=== PATIENT | female | born 1975 | race Caucasian/White ===

== ENCOUNTER → 2019-05-04 13:00 | Outpatient (BNVA) | payer SELFPAY | PROVIDERS: PCP Nurse Practitioner Family; Visit Provider Nurse Practitioner Family | DX: T30.0 Burn of unspecified body region, unspecified degree (principal); X58.XXXA Exposure to other specified factors, initial encounter | CPT/HCPCS: 80053; 85025; 87070; 87077; 87186; 87205 ==

== ENCOUNTER 2019-05-23 13:35 | Outpatient (RCR) | payer SELFPAY | END 2019-06-17 23:59 | disposition home or self-care (01) | LOC: WOUND 13:35 | PROVIDERS: PCP Nurse Practitioner Family; Visit Provider Thoracic Surgery (Cardiothoracic Vascular Surgery) | DX: T24.301D Burn of third degree of unspecified site of right lower limb, except ankle and foot, subsequent encounter (principal); T79.9XXD Unspecified early complication of trauma, subsequent encounter; X08.8XXD Exposure to other specified smoke, fire and flames, subsequent encounter | CPT/HCPCS: 11042; 99203; G0463 ==

== ENCOUNTER 2019-09-24 22:39 | Emergency (ER) | payer SELFPAY ==
[2019-09-24 22:45] VITALS: RESP 18; O2SAT 100; BMI 24.7
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
[2019-09-25] MEDS: LORazepam 2 mg/mL INJ 1 mL IM (00:39)
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
[2019-09-25] MEDS: lidocaine 1% INJ 20 mL 2.1 ML IM (00:49)
[2019-09-25] MEDS: azithromycin 250 mg Tablet 1000 MG PO (00:50)
[2019-09-25] MEDS: cefTRIAXone 250 mg SDV IM (00:50)
[2019-09-25 01:03] LABS: Amphetamines Screen Urine Negative (Negative); Barbiturates Screen Urine Negative (Negative); Benzodiazepines Screen Urine Negative (Negative); Cocaine Screen Urine Negative (Negative); Opiate Screen Urine Negative (Negative); PCP Screen Urine Negative (Negative); THC Screen Urine Negative (Negative)
[2019-09-25 01:06] LABS: Alcohol Level 164 mg/dL (0-10)
[2019-09-25 01:19] LABS: HIV 1 & 2 Antibody Non-Reactive (Non-Reactiv); HIV 1 & 2 Antigen Non-Reactive (Non-Reactiv)
[2019-09-25 01:30] LABS: Hepatitis A Antibody IgM Non-Reactive (Nonreactive); Hepatitis B Core AB, Total Non-Reactive (Nonreactive); Hepatitis B Surface AB 3.5 (0-8.5); Hepatitis B Surface Antigen Non-Reactive (Nonreactive); Hepatitis C Virus Antibody Non-Reactive (Nonreactive)
== END 2019-09-25 01:17 | disposition home or self-care (01) ==
PROVIDERS: Emergency Provider Nurse Practitioner Family; PCP Nurse Practitioner Family
DX: T74.21XA Adult sexual abuse, confirmed, initial encounter (principal); F18.2 Inhalant dependence; F17.210 Nicotine dependence, cigarettes, uncomplicated
CPT/HCPCS: 12345; 80306; 80307; 86705; 86706; 86709; 86803; 87340; 87806; 96372; 99281; 99284; J0696; J2001; J2060; Q0144

== ENCOUNTER 2019-10-05 23:32 | Emergency (ER) | payer OTHER, SELFPAY ==
[2019-10-05 23:35] VITALS: BP 83/68; PULSE 82; RESP 16; TEMP 36.9; O2SAT 98; BMI 24.7
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
[2019-10-06 00:20] VITALS: BP 129/83; PULSE 80; RESP 18; O2SAT 99
[2019-10-06 01:51] LABS: Add Urine Microscopic? NO
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
[2019-10-06 02:20] LABS: Bilirubin Urine Neg (NEGATIVE); Blood Urine Neg (Negative); Glucose Urine UA Norm (Normal); Ketones Urine Negative (Negative); Leukocyte Esterase Urine Negative (Negative); Nitrate Urine Negative (Negative); Protein Urine Neg (Negative); Specific Gravity, Urine 1.005 (1.005-1.030); Urine Appearance Clear (CLEAR); Urine Color Straw (Yellow); Urobilinogen Urine Norm (Negative); pH Urine 7 (5-7)
--- NOTE | 2019-10-06 02:52 | PC.NURSE ---
NORA exam done by SANE nurse. Pt. tolerated procedure well. Report made with Kelly DALEY.
[2019-10-06 03:06] VITALS: BP 142/85; PULSE 78; RESP 18; O2SAT 100
== END 2019-10-06 03:10 ==
PROVIDERS: Emergency Provider Nurse Practitioner Family; PCP Nurse Practitioner Family
DX: T74.21XA Adult sexual abuse, confirmed, initial encounter (principal); F17.210 Nicotine dependence, cigarettes, uncomplicated
CPT/HCPCS: 12345; 81003; 99281

== ENCOUNTER 2019-10-07 03:06 | Emergency (ER) | payer SELFPAY ==
[2019-10-07 03:18] VITALS: BP 120/81; PULSE 82; RESP 18; TEMP 36.5; O2SAT 100; BMI 26.5
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
[2019-10-07 03:26] VITALS: BP 131/77; PULSE 66; RESP 16; O2SAT 97
--- NOTE | 2019-10-07 03:29 | PC.NURSE ---
Pt refuses SANE exam and Provider exam.
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
[2019-10-07 04:26] VITALS: BP 127/74; PULSE 66; RESP 16; O2SAT 98
== END 2019-10-07 05:10 | disposition home or self-care (01) ==
PROVIDERS: Emergency Provider Emergency Medicine; PCP Nurse Practitioner Family
DX: T74.21XA Adult sexual abuse, confirmed, initial encounter (principal); F17.210 Nicotine dependence, cigarettes, uncomplicated
CPT/HCPCS: 12345; 71045; 99282; 99283

== ENCOUNTER 2019-10-15 01:24 | Emergency (ER) | payer SELFPAY ==
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
--- NOTE | 2019-10-15 03:34 | PC.NURSE ---
i agree with this assessment
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
== END 2019-10-15 03:35 | disposition home or self-care (01) ==
PROVIDERS: Emergency Provider Emergency Medicine; PCP Nurse Practitioner Family
DX: T20.20XA Burn of second degree of head, face, and neck, unspecified site, initial encounter (principal); X08.8XXA Exposure to other specified smoke, fire and flames, initial encounter; S90.31XA Contusion of right foot, initial encounter; F18.20 Inhalant dependence, uncomplicated; F17.210 Nicotine dependence, cigarettes, uncomplicated
CPT/HCPCS: 12345; 73630; 99281; 99283

== ENCOUNTER 2019-12-04 20:09 | Emergency (ER) | payer SELFPAY ==
[2019-12-04 20:20] VITALS: BP 157/118; PULSE 93; RESP 16; TEMP 36.5; O2SAT 98; BMI 25.8
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
[2019-12-04 20:49] VITALS: RESP 16
[2019-12-04] MEDS: morphine 4 mg/mL SDV 1 mL IM (20:49)
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
[2019-12-04] MEDS: ketorolac 60 mg/2 mL INJ IM (22:42)
[2019-12-04 22:49] VITALS: BP 163/109; PULSE 98; RESP 16; O2SAT 100
== END 2019-12-04 22:50 | disposition home or self-care (01) ==
PROVIDERS: Emergency Provider Family Medicine; PCP Nurse Practitioner Family
DX: S02.601A Fracture of unspecified part of body of right mandible, initial encounter for closed fracture (principal); S02.652A Fracture of angle of left mandible, initial encounter for closed fracture; F17.210 Nicotine dependence, cigarettes, uncomplicated; Y04.2XXA Assault by strike against or bumped into by another person, initial encounter
CPT/HCPCS: 12345; 70450; 70486; 72125; 96372; 99281; 99283; J1885; J2270

== ENCOUNTER 2019-12-19 00:15 | Emergency (ER) | payer SELFPAY ==
[2019-12-19 00:15] VITALS: BMI 24.7
--- NOTE | 2019-12-19 00:22 | W.ED.PSYCH ---
HPI - Psych General: Chief Complaint: Psychiatric Symptoms Stated Complaint: 96 hr Hold Time Seen by Provider: 12/19/19 00:16 Source: patient and police Mode of arrival: other (police) Limitations: no limitations History of Present Illness: HPI Narrative: 44-year-old female who presents with police. Patient's family fill out 96-hour hold for possible suicidality. Patient adamantly refuses being suicidal or homicidal. Patient denies any recent attempts and states she would never kill herself. She denies any recent drug use. Associated symptoms: Deny depression Review of Systems Const: Denies: fever(s), chills, body aches or change in appetite Eyes: Denies: blurry vision or eye discomfort ENMT: Denies: throat pain or dental pain Card: Denies: chest pain Resp: Denies: dyspnea GI: Denies: abdominal pain, nausea, vomiting or diarrhea : Denies: dysuria Musc: Denies: neck pain or back pain Skin/Breast: Denies: rash Neuro: Denies: headache(s) Psych: Denies: depression Kyle/Lymph: Denies: easy bruising All/Imm: Denies: urticaria PFSH ED PFSH: Medical History History of amputation of finger (~2009) Family History Family/Other Unknown family medical history adopted Social History (Updated 12/19/19 @ 00:46 by Francesco Murray RN) Smoking and tobacco status: current every day smoker cigarettes Second hand smoke exposure: Yes Alcohol intake: current Substance/Drug Use: current Substance/Drug use frequency: daily Substance/Drug use type: Inhalants 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, relasped 2 days Desire information about substance/drug rehabilitation?: Yes Lives independently: Yes Household members: friend(s) Housing: House Marital status: Current occupational status: disabled Current occupational exposures/hazards: Yes History of recent travel: No Current gender identity: Female Physical Exam Const: COMMON NORMALS: no acute distress, patient oriented x3 and healthy appearing HENMT: COMMON NORMALS: normocephalic and atraumatic HEAD & SCALP: normocephalic and atraumatic Eye: COMMON NORMALS: Equal, round and reactive pupils present and EOMs intact bilaterally PUPIL: Yes Equal, round and reactive pupils present Neck/C-Spine: COMMON NORMALS: full ROM and supple Chest: COMMONS NORMALS: normal inspection of the chest and normal palpation of entire chest wall Resp: COMMON NORMALS: normal respiratory effort, No retractions, No use of accessory muscles and clear to auscultation bilaterally AUSCULTATION: clear to auscultation bilaterally Cardio: COMMON NORMALS: regular rate, regular rhythm and No murmurs present (Cardio) RATE: regular rate RHYTHM: regular rhythm GI: COMMON NORMALS: Normal to inspection, nondistended, normoactive bowel sounds present, Soft to palpation, non-tender and no masses PALPATION: Yes Soft to palpation Extremity: COMMON NORMALS: normal to inspection and full ROM Neuro: COMMON NORMALS: patient oriented x3, moves all extremities and no focal motor deficits Psych: COMMON NORMALS: mental status grossly normal, Normal thought process present and cooperative THOUGHT PROCESS: Normal thought process present Skin: COMMON NORMALS: no rashes or lesions noted and no wounds GENERAL SKIN EXAM: no rashes or lesions noted MDM - Psych MDM Narrative: Medical decision making narrative: Patient presents here with depression. Patient was on a 96-hour hold and had affidavits filled out by family. Patient denied ever saying any suicidal homicidal statements to her family. I had Dr. Floyd assessed patient and went over the affidavits with him as well. He does not believe she is a threat to herself and does not believe she was suicidal. I do not believe that she is suicidal either and I feel she is stable for discharge. I had a long discussion with her informed her she does have any worsening depressions or suicidal thoughts she is to return. She did agree and I feel she is safe for discharge at this time and will rescind her 96-hour hold. Discharge Plan Discharge Patient Disposition: Home Clinical Impression: Depression Qualifiers: Depression Type: unspecified Qualified Code(s): F32.9 - Major depressive disorder, single episode, unspecified Condition: Stable Prescriptions: No Action ibuprofen 200 mg Tablet 200 - 400 mg PO Q4H PRN (Reason: Pain) RF: 0 [place] 5-325 mg tablet 1 tab PO Q8H PRN (Reason: mandibular fracture) Qty: 15 RF: 0 Discharge Orders: Discharge Order (Routine); Ordered 12/19/19 Ordered By: Geovani Quiroga Referrals: Tyesha Chavira FNP [Primary Care Provider] - 1-3 days Discharge Diet: Advance as tolerated Discharge Activity: Resume usual activity Patient Instructions: Depression (ED) Coding Level of Care Code ED Contractor Buyer for Chg Fwd Exam Comprehensive
--- NOTE | 2019-12-19 00:38 | PC.NURSE ---
Patient uncooperative with blood work. Two RNs attempting to draw labs. Patient refusing to provide a urine sample at this time.
--- NOTE | 2019-12-19 01:39 | PC.NURSE ---
Arranged transport home via the patient's parents.
[2019-12-19 01:40] VITALS: PULSE 88; RESP 14; O2SAT 99
--- NOTE | 2019-12-19 09:35 | PC.SOCIAL ---
Mother had called Admin this am regarding concerns of patient being discharged from ED and mentioned she did not get DC paperwork. Emailed DC paperwork to Joe office in [place] and copied Zari and Angelique Crane as well. Spoke with Angelique Crane to confirm that patient does have an appt at the [facility] [facility] today at 2pm. left message for Jillian at [facility] and requested a call back. Will try to obtain an intake appt so patient can establish with Behavioral healthcare for depression concerns. Tried to follow up with Mom and was asked to call back in 5 min. Tried to reach patient first but no answer. Mother is currently not listed as a contact so limited information will be provided and will just address that her ED DC paperwork can be retrieved at her appt today with Joe since they will have this available for her. Will call Mother back shortly.
--- NOTE | 2019-12-19 12:43 | PC.SOCIAL ---
Discussed with Jillian at [facility]. She needs to have the new patient paperwork returned prior to being able to schedule an appointment. Since patient is to be seen at 2 by [facility] Walsh will call [facility] office and make sure they have the paperwork. If she can complete while at [facility] then they can send this back and an appt can be scheduled. Appreciated Jillian's help with coordinating the care.
== END 2019-12-19 01:41 | disposition home or self-care (01) ==
PROVIDERS: Emergency Provider Emergency Medicine; PCP Nurse Practitioner Family
DX: F32.9 Major depressive disorder, single episode, unspecified (principal); F17.210 Nicotine dependence, cigarettes, uncomplicated
CPT/HCPCS: 12345; 99284

== ENCOUNTER 2020-02-25 22:16 | Inpatient (IN) | payer SELFPAY ==
[2020-02-25] VITALS (15 sets, daily range): BP systolic 105–135; BP diastolic 65–94; PULSE 68–100; RESP 12–19; TEMP 37.2; O2SAT 97–100
[2020-02-25] MEDS: OLANZapine 10 mg VIAL IM (22:42)
--- NOTE | 2020-02-25 22:46 | PC.NURSE ---
Pt is alternating between tearful and hostile. Reports wanting to kill herself and has self inflicted injuries to arms and legs. Pt does not answer behavioral health questions at this time.
[2020-02-25 23:00] LABS: Add Urine Microscopic? NO
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
[2020-02-25 23:03] LABS: Basophils # 0.1 10^3/uL (0.0-0.1); Basophils % 0.7 %; Eosinophils # 0.1 10^3/uL (0.0-0.8); Eosinophils % 1.2 %; Hematocrit 32.9 % (37.0-47.0); Hemoglobin 9.4 g/dL (11.5-15.3); Lymphocytes # 1.8 10^3/uL (0.8-4.8); Lymphocytes % 19.5 %; Mean Corpuscular HGB Conc 28.6 g/dL (30.0-36.0); Mean Corpuscular Hemoglobin 20.8 pg (28.0-34.0); Mean Corpuscular Volume 72.9 fL (81-99); Mean Platelet Volume 9.9 fL (7.4-10.4); Monocytes # 0.5 10^3/uL (0.2-0.9); Monocytes % 5.3 %; Neutrophils # 6.71 10^3/uL (1.8-7.7); Nucleated Red Blood Cells % 0 %; Platelet Count 516 10^3/cmm (130-400); Red Blood Count 4.51 10^6/uL (4.1-5.3); Red Cell Distribution Width 17.7 % (12.1-15.1); White Blood Count 9.2 10^3/uL (4.0-10.0)
--- NOTE | 2020-02-25 23:08 | PC.NURSE ---
call to poison control for pt overdose unknown about of IB and Tylenol. will call and notified Nabil at posion control
[2020-02-25 23:20] LABS: Alanine Aminotransferase 13 U/L (0-33); Albumin Level 4.2 g/dL (3.5-5.2); Alkaline Phosphatase 118 IU/L (35-105); Anion Gap 17.3 (5-19); Aspartate Amino Transferase 18 U/L (0-32); Blood Urea Nitrogen 9 mg/dL (6-20); Calcium 8.2 mg/dL (8.5-10.5); Carbon Dioxide 21 mmol/L (22-29); Chloride 109 mmol/L (98-107); Globulin 3.3 g/dL (1.3-4.6); Glomerular Filtration Rate 132.8 mL/min (90-130); Glucose 96 mg/dL (65-115); Osmolality Calculated 297 mOsm/kg (285-295); Potassium 3.3 mmol/L (3.5-5.1); Sodium 144 mmol/L (136-145); Total Bilirubin 0.2 mg/dL (0.15-1.2); Total Protein 7.5 g/dL (6.6-8.7)
[2020-02-25 23:21] LABS: Acetaminophen < 5.0 ug/mL (10-30); Salicylate < 0.3 mg/dL (3-10)
[2020-02-25 23:22] LABS: Alcohol Level 329 mg/dL (0-10); Amphetamines Screen Urine Positive (Negative); Barbiturates Screen Urine Negative (Negative); Benzodiazepines Screen Urine Negative (Negative); Cocaine Screen Urine Negative (Negative); Opiate Screen Urine Negative (Negative); PCP Screen Urine Negative (Negative); THC Screen Urine Negative (Negative)
[2020-02-25 23:26] LABS: Bilirubin Urine Neg (Negative); Blood Urine Neg (Negative); Glucose Urine UA Norm (Normal); HCG Qualitative Urine. Negative (Negative); Ketones Urine Negative (Negative); Leukocyte Esterase Urine Negative (Negative); Nitrate Urine Negative (Negative); Protein Urine Neg (Negative); Specific Gravity, Urine 1.005 (1.005-1.030); Urine Appearance Clear (CLEAR); Urine Color Straw (Yellow); Urobilinogen Urine Norm (Negative); pH Urine 6 (5-7)
[2020-02-26] VITALS (61 sets, daily range): BP systolic 101–142; BP diastolic 63–99; PULSE 78–133; RESP 14–23; TEMP 36.3–36.6; O2SAT 95–100
--- NOTE | 2020-02-26 00:06 | PC.NURSE ---
sitter at bedside for 1:1 observation
[2020-02-26] MEDS: LORazepam 2 mg/mL INJ 1 mL IVP (00:54)
--- NOTE | 2020-02-26 01:02 | PC.NURSE ---
2nd call from Poison control Nabil. Reviewed lab and follow up care. Plan is keep pt to sober up. Continue to monitor.
--- NOTE | 2020-02-26 02:16 | PC.NURSE ---
Pt appears to be resting with eyes closed with sitter 1:1
[2020-02-26 05:03] LABS: Alcohol Level 152 mg/dL (0-10)
--- NOTE | 2020-02-26 05:42 | PC.NURSE ---
Pt arrived to unit at 0455, but due to down time, pt info was entered as soon as able. Pt is uncooperative and yells at staff. Pt refused to sign any admission paperwork. Vital signs obtained as pt would allow. pt taken to room and skin assessment completed.
--- NOTE | 2020-02-26 08:18 | PC.NURSE ---
refused scheduled [place] con
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
--- NOTE | 2020-02-26 18:06 | PC.RESP ---
Smoking Cessation information sent to patient.
--- NOTE | 2020-02-26 21:37 | PC.NURSE ---
pt. refused vitals.
[2020-02-27 06:00] VITALS: RESP 15
--- NOTE | 2020-02-27 07:03 | PC.NURSE ---
Patient refused vitals. Respirations were taken
[2020-02-27 14:00] VITALS: RESP 18
--- NOTE | 2020-02-27 15:10 | PC.NURSE ---
refused to let MEDICAL RECORD CONSULTANT obtain vital signs
--- NOTE | 2020-02-27 15:58 | PM.NPN ---
Subjective NPU Subjective: Interval history: Carissa presents today continuing to be resistant to treatment and saying she will stay until her 96-hour hold concludes. She continues to be upset that she was not at her surgery and not wanting to discussed the fact that she was intoxicated and would have been appropriate for surgery anyway. She is unwilling to discuss initiating medications or any other treatment at this time with this physician underwriter. Mental Status Exam MSE Comments: This was a middle-aged white female in hospital scrubs with limited grooming and eye contact. No abnormal movements except for psychomotor retardation and some agitation with interview. Uncooperative with exam in mild to moderate distress. Speech was limited and decreased volume. Mood not described but affect irritable. Thought process organized. Thought content: Patient did not respond to questions of suicidal or homicidal ideation but did endorse suicidal ideation last night, there were no delusions reported or noted, denying auditory visualizations. Attention and concentration were limited and memory appeared unreliable but none were formally tested. She is alert and oriented to person and place. Insight and judgment are impaired and impulse control is impaired. Vitals/I&O/Wt Last Vital Signs Temp 97.3 F L 02/26/20 14:00 Pulse 78 02/26/20 14:00 Resp 18 02/27/20 19:58 BP 119/76 02/26/20 14:00 Pulse Ox 99 02/26/20 14:00 Weight last 48 hrs Weight 63.503 kg Physical Exam Urinary Catheter Management^: Meraz: Cath Placed During This Visit: yes Urinary Catheter Date of Insertion: 02/25/20 Urinary Catheter Time of Insertion: 23:40 Data NPU : 02/25/20 22:50 02/25/20 22:50 A&P Additional A&P Information (1) Depression with suicidal ideation: (2) Alcohol intoxication: (3) Inhalant use disorder, severe, dependence: (4) Current smoker: (5) Methamphetamine abuse: This is a 45-year-old white female who presents in active alcohol withdrawal with other drugs on board with significant irritability and reports of suicidal thinking who presents resistant to treatment and interview. 1. Continue current medication. We will continue to work for appropriate medication management. 2. Continue every 15 minute checks for safety. 3. Encourage individual, group and milieu therapy. 4. Encourage sober living treatment at the highest level to which she is willing to commit. Involuntary Hold Information 96 Hour Hold: 96 Hour Involuntary Admission: Yes 96 Hour Hold Ending Date: 03/01/20 96 Hour Hold Ending Time: 02:48 Attestations NPU Medical Necessity Statement*: Inpatient hospitalization is medically necessary and the clinically appropriate intervention at this time. We will monitor medications and make changes as indicated. Likely length of stay 3 to 5 days. Coding Level of Care Code Acute Freight Conductor for Marvel Arguello
[2020-02-27 19:58] VITALS: RESP 18
--- NOTE | 2020-02-27 19:58 | PC.NURSE ---
Patient very agitated and refused vitals. Respirations were taken.
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
[2020-02-27] MEDS: HYDROcodone-acetaminophen 5-325 mg Tablet 1 TAB PO (21:17)
[2020-02-27] MEDS: neomycin-poly-bacitracin oint 0.9 gm Pkt 1 APPLIC TOPICAL (21:19)
[2020-02-27] MEDS: trazodone 50 mg Tablet PO (21:33)
[2020-02-27] MEDS: hyDROXYzine 25 mg Capsule 50 MG PO (21:33)
[2020-02-27] MEDS: fixodent 39 gm Tube 1 APPLIC DENTAL (21:51)
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
[2020-02-28 06:00] VITALS: RESP 16
--- NOTE | 2020-02-28 06:28 | PC.NURSE ---
Patient refused vitals. Respirations were taken.
--- NOTE | 2020-02-28 12:52 | P.PN_ITS ---
Subjective NPU Subjective: Interval history: Carissa presents today continuing to be very irritable. Attempted to have a discussion in the ballpark of the discussion she had with the nursing providers last night and she would not converse about anything other than discharge me. She expressed anger and resentment about the fact that a person should not be able to be put on a 96-hour hold because she drank on 1 night. We discussed the fact that that was not the reason she was put on the hold. Try to coax her into having a reasoned conversation about where things stood, but she was either unwilling or unable. Mental Status Exam MSE Comments: This was a middle-aged white female in hospital scrubs with limited grooming and eye contact. No abnormal movements except for psychomotor retardation and some agitation with interview. Uncooperative with exam in mild to moderate distress. Speech was more spontaneous and more normal rate and volume. Mood reported as I want to leave, affect irritable. Thought process organized. Thought content: Patient did not respond to questions of suicidal or homicidal ideation, there were no delusions reported or noted, denying auditory visualizations. Attention and concentration were limited and memory appeared unreliable but none were formally tested. She is alert and oriented to person and place. Insight and judgment are impaired and impulse control is impaired. Vitals/I&O/Wt Last Vital Signs Temp 97.9 F 02/28/20 21:48 Pulse 99 02/28/20 21:48 Resp 16 02/28/20 21:48 BP 131/76 02/28/20 21:48 Pulse Ox 92 02/28/20 21:48 Weight last 48 hrs Weight 63.503 kg Physical Exam Urinary Catheter Management^: Meraz: Cath Placed During This Visit: yes Urinary Catheter Date of Insertion: 02/25/20 Urinary Catheter Time of Insertion: 23:40 Data NPU : 02/25/20 22:50 02/25/20 22:50 A&P Additional A&P Information (1) Depression with suicidal ideation: (2) Alcohol intoxication: (3) Inhalant use disorder, severe, dependence: (4) Current smoker: (5) Methamphetamine abuse: This is a 45-year-old white female who presents in active alcohol withdrawal wit h other drugs on board with significant irritability and reports of suicidal thinking who presents resistant to treatment and interview. 1. Continue current medication. We will continue to work for appropriate medication management. 2. Continue every 15 minute checks for safety. 3. Encourage individual, group and milieu therapy. 4. Encourage sober living treatment at the highest level to which she is willing to commit. Involuntary Hold Information 96 Hour Hold: 96 Hour Involuntary Admission: Yes 96 Hour Hold Ending Date: 03/01/20 96 Hour Hold Ending Time: 02:48 Attestations NPU Medical Necessity Statement*: Inpatient hospitalization is medically necessary and the clinically appropriate intervention at this time. We will monitor medications and make changes as indicated. Likely length of stay 2-4 days. Coding Level of Care Code Acute Customer Engagement Manager for Marvel Arguello
[2020-02-28 14:00] VITALS: BP 116/78; PULSE 95; RESP 18; TEMP 37.2; O2SAT 95
[2020-02-28] MEDS: HYDROcodone-acetaminophen 5-325 mg Tablet 1 TAB PO ×2 (16:07→20:48)
[2020-02-28] MEDS: ketorolac 10 mg Tablet PO (18:29)
[2020-02-28] MEDS: hyDROXYzine 25 mg Capsule 50 MG PO (20:47)
[2020-02-28] MEDS: trazodone 50 mg Tablet PO (20:48)
[2020-02-28 21:48] VITALS: BP 131/76; PULSE 99; RESP 16; TEMP 36.6; O2SAT 92
--- NOTE | 2020-02-28 22:59 | PC.NURSE ---
PT IS PLEASANT, APOLOGETIC FOR PAST BEHAVIOR TOWARD STAFF. PT REPORTS PAIN IN HER MOUTH/JAW. MED NURSE NOTIFIED.
[2020-02-29] MEDS: ketorolac 10 mg Tablet PO ×2 (01:00→23:15)
[2020-02-29 06:00] VITALS: RESP 16
[2020-02-29] MEDS: HYDROcodone-acetaminophen 5-325 mg Tablet 1 TAB PO ×3 (07:44→21:06)
--- NOTE | 2020-02-29 11:54 | P.PN_ITS ---
Subjective NPU Subjective: Interval history: Carissa presents today having had a hospitalist consult yesterday morning looking at her gregory. She identifies that it was obtained through helping and she reports however that she had been doing well previously and just relapsed on of the stress of her current symptoms. She continues to endorse being safe to discharge. She met with the nephrology social worker and was able to share some of her concerns and circumstances. We discussed the risk benefits and alternatives of considering a discharge to her mother's assistance tomorrow. Mental Status Exam MSE Comments: This was a middle-aged white female in hospital scrubs with limited grooming and eye contact. No abnormal movements except for psychomotor retardation and some decreasing agitation with interview. More cooperative with exam in mild distress. Speech was more spontaneous and normal rate and volume. Mood reported as I am fine, affect less irritable. Thought process organized. Thought content: Patient denied suicidal or homicidal ideation, there were no delusions reported or noted, denying auditory or visual hallucinations. Attention and concentration were intact and memory appeared more reliable but none were formally tested. She is alert and oriented to person and place. Insight and judgment are improving and impulse control is impaired, but improving. Vitals/I&O/Wt Last Vital Signs Temp 98.8 F 02/29/20 20:07 Pulse 87 02/29/20 20:07 Resp 17 02/29/20 20:07 BP 100/70 02/29/20 20:07 Pulse Ox 99 02/29/20 20:07 Physical Exam Urinary Catheter Management^: Meraz: Cath Placed During This Visit: yes Urinary Catheter Date of Insertion: 02/25/20 Urinary Catheter Time of Insertion: 23:40 Data NPU : 02/25/20 22:50 02/25/20 22:50 A&P Additional A&P Information (1) Depression with suicidal ideation: (2) Alcohol intoxication: (3) Inhalant use disorder, severe, dependence: (4) Current smoker: (5) Methamphetamine abuse: This is a 45-year-old white female who presents in active alcohol withdrawal with other drugs on board with significant irritability and reports of suicidal thinking who presents resistant to treatment and interview. 1. Continue current medication. We will continue to work for appropriate medication management. 2. Continue every 15 minute checks for safety. 3. Encourage individual, group and milieu therapy. 4. Encourage sober living treatment at the highest level to which she is willing to commit. 5. Patient has been assessed for lethality and at this point we will plan for discharge tomorrow. Involuntary Hold Information 96 Hour Hold: 96 Hour Involuntary Admission: Yes 96 Hour Hold Ending Date: 03/01/20 96 Hour Hold Ending Time: 02:48 Attestations NPU Medical Necessity Statement*: Inpatient hospitalization is medically necessary and the clinically appropriate intervention at this time. We will monitor medications and make changes as indicated. Likely length of stay 1-3 days, with tentative plan for discharge tomorrow. Coding Level of Care Code Acute Bonding And Composite Fabricator for Marvel Arguello
[2020-02-29 13:26] VITALS: BP 92/62; PULSE 90; RESP 18; TEMP 36.8; O2SAT 97
[2020-02-29 20:07] VITALS: BP 100/70; PULSE 87; RESP 17; TEMP 37.1; O2SAT 99
[2020-02-29] MEDS: hyDROXYzine 25 mg Capsule 50 MG PO (21:05)
[2020-02-29] MEDS: silver sulfadiazine cream 1% 50 gm 1 APPLIC TOPICAL (21:09)
[2020-02-29] MEDS: neomycin-poly-bacitracin oint 0.9 gm Pkt 1 APPLIC TOPICAL (21:10)
[2020-02-29] MEDS: trazodone 50 mg Tablet PO (23:16)
[2020-03-01 05:25] VITALS: BP 104/66; PULSE 84; RESP 16; TEMP 37; O2SAT 97
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
[2020-03-01] MEDS: HYDROcodone-acetaminophen 5-325 mg Tablet 1 TAB PO (05:34)
[2020-03-01 08:52] VITALS: BP 104/66; PULSE 84; RESP 16; TEMP 37; O2SAT 97
== END 2020-03-01 10:04 | disposition home or self-care (01) | DRG 918 ==
LOC: ER 22:38 → NP 02-26 02:54
PROVIDERS: Family Medicine; Admitting Provider Psychiatry & Neurology Psychiatry; Emergency Provider Emergency Medicine; PCP Nurse Practitioner Family; Visit Provider Psychiatry & Neurology Psychiatry
DX: T39.312A Poisoning by propionic acid derivatives, intentional self-harm, initial encounter (principal); T39.1X2A Poisoning by 4-Aminophenol derivatives, intentional self-harm, initial encounter; Y92.009 Unspecified place in unspecified non-institutional (private) residence as the place of occurrence of the external cause; F10.129 Alcohol abuse with intoxication, unspecified; F17.210 Nicotine dependence, cigarettes, uncomplicated; F15.10 Other stimulant abuse, uncomplicated; F12.10 Cannabis abuse, uncomplicated; E87.6 Hypokalemia; Y90.8 Blood alcohol level of 240 mg/100 ml or more; Z89.021 Acquired absence of right finger(s); Z62.810 Personal history of physical and sexual abuse in childhood; Z98.84 Bariatric surgery status; F51.04 Psychophysiologic insomnia; A60.00 Herpesviral infection of urogenital system, unspecified; X14.0XXA Inhalation of hot air and gases, initial encounter; T24.102A Burn of first degree of unspecified site of left lower limb, except ankle and foot, initial encounter; F31.9 Bipolar disorder, unspecified
CPT/HCPCS: 12345; 51702; 80053; 80306; 80307; 81003; 81025; 85025; 96372; 99285; J2060; J3490

== ENCOUNTER 2020-03-27 22:00 | Emergency (ER) | payer SELFPAY ==
[2020-03-27 22:03] VITALS: BP 100/72; PULSE 86; RESP 17; TEMP 36.7; O2SAT 98; BMI 23.0
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
[2020-03-27] MEDS: HYDROcodone-acetaminophen 5-325 mg Tablet 2 TAB PO (22:15)
[2020-03-27] MEDS: ondansetron 4 MG Tablet PO (22:15)
[2020-03-27] MEDS: cephALEXin 500 mg Capsule PO (22:15)
[2020-03-27 22:16] VITALS: BP 110/80; PULSE 82; RESP 14; O2SAT 100
[2020-03-27] MEDS: ketorolac 60 mg/2 mL INJ IM (23:06)
[2020-03-27 23:45] VITALS: PULSE 82; O2SAT 100
--- NOTE | 2020-03-28 08:52 | DCPLANNER ---
asset protection manager had message to schedule a follow up appointment for patient with [facility]. asset protection manager called [facility], spoke with Katerina, gave clinic patients information. asset protection manager was told that patients information would be printed and reviewed. Clinic will call patient with appointment information.
--- NOTE | 2020-03-29 13:25 | DCPLANNER ---
manager icu called Wound Care to confirm if an appointment had been scheduled for patient. manager icu spoke with Katerina was told that when clinic called patient to schedule an appointment that patient stated unless the clinic was going to give her some pain medicine that she did not want the appointment. Patient also stated that she was going to be seeing her primary care physician and if she needs an appointment then she will call the clinic to schedule one.
== END 2020-03-27 23:46 | disposition home or self-care (01) ==
PROVIDERS: Emergency Provider Emergency Medicine; PCP Nurse Practitioner Family
DX: T59.891A Toxic effect of other specified gases, fumes and vapors, accidental (unintentional), initial encounter (principal); T22.652A Corrosion of second degree of left shoulder, initial encounter; T20.67XA Corrosion of second degree of neck, initial encounter; T24.602A Corrosion of second degree of unspecified site of left lower limb, except ankle and foot, initial encounter; F17.210 Nicotine dependence, cigarettes, uncomplicated
CPT/HCPCS: 12345; 96372; 99282; 99283; J1885; Q0162